=== PATIENT | female | born 1980 | race Caucasian/White ===

== ENCOUNTER 2017-04-04 19:12 | Emergency (ER) | payer SELFPAY ==
[2017-04-04 19:35] VITALS: BP 114/81
[2017-04-04 20:57] LABS: Basophils % (Auto) 0.9 % (0.0-1.8); Eosinophils % (Auto) 1.8 % (0.0-4.3); Hemoglobin 13.7 gm/dl (10.1-14.3); Mean Corpuscular HGB Conc 33 % (30-34); Mean Corpuscular Hemoglobin 30 pg (28-32); Mean Corpuscular Volume 92 fl (79-97); Platelet Count 187 K/mm3 (140-440); Red Blood Count 4.55 M/mm3 (3.65-5.03); Red Cell Distribution Width 13.5 % (13.2-15.2); White Blood Count 5.7 K/mm3 (4.5-11.0)
[2017-04-04 21:13] LABS: Alanine Aminotransferase 13 units/L (7-56); Albumin 4.6 g/dL (3.9-5); Albumin/Globulin Ratio 1.4 %; Alkaline Phosphatase 38 units/L (35-129); Anion Gap 19 mmol/L; BUN/Creatinine Ratio 17.14; Blood Urea Nitrogen 12 mg/dL (7-17); Calcium 9.7 mg/dL (8.4-10.2); Carbon Dioxide 23 mmol/L (22-30); Creatine Kinase 76 units/L (30-135); Glucose 90 mg/dL (65-100); Potassium 3.7 mmol/L (3.6-5.0); Sodium 136 mmol/L (137-145); Total Protein 7.9 g/dL (6.3-8.2)
[2017-04-04 21:22] LABS: Creatine Kinase MB < 1.0 ng/mL (0.0-4.0)
--- NOTE | 2017-04-05 07:19 | ED Elopement Review ---
ED Pt Elopement review - Results review Lab results: Laboratory Tests 04/04/17 04/04/17 20:43 20:43 WBC 5.7 RBC 4.55 Hgb 13.7 Hct 42.0 MCV 92 MCH 30 MCHC 33 RDW 13.5 Plt Count 187 Lymph % (Auto) 40.3 H [place] % (Auto) 6.1 Eos % (Auto) 1.8 Baso % (Auto) 0.9 Lymph # 2.3 [place] # 0.3 Eos # 0.1 Baso # 0.1 Seg Neutrophils % 50.9 Seg Neutrophils # 2.9 Sodium 136 L Potassium 3.7 Chloride 98.0 Carbon Dioxide 23 Anion Gap 19 BUN 12 Creatinine 0.7 Estimated GFR > 60 BUN/Creatinine Ratio 17.14 Glucose 90 Calcium 9.7 Total Bilirubin 0.20 AST 18 ALT 13 Alkaline Phosphatase 38 Total Creatine Kinase 76 CK-MB (CK-2) < 1.0 CK-MB (CK-2) Rel Index 1.3 Troponin T < 0.010 Total Protein 7.9 Albumin 4.6 Albumin/Globulin Ratio 1.4 - Call Back decision Pt Call Back Decision: No action required
== END 2017-04-04 22:35 | disposition left against medical advice (07) ==
LOC: ED 19:12
DX: R07.9 Chest pain, unspecified (principal); Z53.21 Procedure and treatment not carried out due to patient leaving prior to being seen by health care provider
CPT/HCPCS: 36415; 80053; 81025; 82550; 82553; 84484; 85025; 93005; 93010

== ENCOUNTER 2017-07-16 20:24 | Emergency (ER) | payer MEDICAID, OTHER ==
[2017-07-16] MEDS ORDERED: ZOFRAN ODT PO ONE (22:05)
[2017-07-16 22:58] LABS: Basophils % (Auto) 0.6 % (0.0-1.8); Eosinophils % (Auto) 0.4 % (0.0-4.3); Hematocrit 42.4 % (30.3-42.9); Hemoglobin 13.8 gm/dl (10.1-14.3); Mean Corpuscular HGB Conc 33 % (30-34); Mean Corpuscular Hemoglobin 30 pg (28-32); Mean Corpuscular Volume 93 fl (79-97); Platelet Count 215 K/mm3 (140-440); Red Blood Count 4.58 M/mm3 (3.65-5.03); Red Cell Distribution Width 13.5 % (13.2-15.2); White Blood Count 4.7 K/mm3 (4.5-11.0)
[2017-07-16 23:07] LABS: Blood Urea Nitrogen 9 mg/dL (7-17); Calcium 10.4 mg/dL (8.4-10.2); Carbon Dioxide 24 mmol/L (22-30); Chloride 98.1 mmol/L (98-107); Glucose 99 mg/dL (65-100); Sodium 141 mmol/L (137-145)
[2017-07-16 23:38] LABS: Anion Gap 23 mmol/L; Potassium 4.5 mmol/L (3.6-5.0)
[2017-07-17] MEDS ORDERED: NACL 0.9% 1000 ML 1,000 ML IV ONE (01:00)
[2017-07-17] MEDS ORDERED: ZOFRAN IV ONE (01:01)
[2017-07-17] MEDS ORDERED: TORADOL IV ONE (01:02)
[2017-07-17] MEDS ORDERED: REGLAN PO ONE (01:23)
[2017-07-17] MEDS ORDERED: FIORICET PO ONE (01:23)
[2017-07-17 02:29] LABS: Bacteria,Urine 1+ /HPF (Negative); Bilirubin,Urine NEG (Negative); Blood,Urine NEG (Negative); Ketones,Urine TR mg/dL (Negative); Leukocyte Esterase,Urine NEG (Negative); Mucus,Urine FEW /HPF; Nitrite,Urine NEG (Negative); Protein,Urine <15 mg/dL mg/dL (Negative); Urobilinogen,Urine < 2.0 mg/dL (<2.0)
--- NOTE | 2017-07-17 02:36 | Cat Scan Report ---
FINAL REPORT PROCEDURE: CT HEAD/BRAIN WO CON TECHNIQUE: Computerized tomography of the head was performed without contrast material. HISTORY: severe migraine COMPARISON: No prior studies are available for comparison. FINDINGS: Skull and scalp: Normal. Paranasal sinuses: Normal. Ventricles and subarachnoid spaces: Normal. Cerebrum: No evidence of hemorrhage, acute infarction or mass . Cerebellum and brainstem: No evidence of hemorrhage, acute infarction or mass. Vasculature: Normal. Comments: None. IMPRESSION: Normal Examination
--- NOTE | 2017-07-17 03:23 | Emergency Department Report ---
ED General Adult HPI - General Chief complaint: Headache Stated complaint: HEADACHE/VOMITING/FEVER Time Seen by Provider: 07/17/17 01:00 Source: patient Mode of arrival: Ambulatory Limitations: No Limitations - History of Present Illness Initial comments: Patient is a 37-year-old female past medical history of migraines who presents with a headache has been going on for last 6 days patient states the pain is an 8 out of 10 located in the right side of her mandaen nothing makes the pain better or worse is an achy type of pain and radiates throughout her head. She states that she feels sometimes nausea but no vomiting. Patient states that she 's tried [id number] medications but nothing assault. Onset of patient's symptoms was gradual. Patient has also reported some subjective fever. Severity scale (0 -10): 7 - Related Data Previous Rx's Medication Instructions Recorded Last Taken Type Butalb/Acetamin/Caff 50-325-40 1 tab PO Q6HR PRN #20 tab 07/17/17 Unknown Rx [Fioricet] Ondansetron [Zofran Odt] 4 mg PO Q8HR PRN #13 tab.rapdis 07/17/17 Unknown Rx Allergies Allergy/AdvReac Type Severity Reaction Status Date / Time ciprofloxacin [From Cipro] Allergy Rash Verified 07/17/17 01:01 ciprofloxacin HCl Allergy Rash Verified 07/17/17 01:01 [From Cipro] levofloxacin [From Levaquin] Allergy Rash Verified 07/17/17 01:01 ED Review of Systems ROS: Stated complaint: HEADACHE/VOMITING/FEVER Other details as noted in HPI Constitutional: fever. denies: chills Eyes: denies: eye pain, eye discharge, vision change ENT: denies: ear pain, throat pain Respiratory: denies: cough, shortness of breath, wheezing Cardiovascular: denies: chest pain, palpitations Endocrine: no symptoms reported Gastrointestinal: denies: abdominal pain, nausea, diarrhea Genitourinary: denies: urgency, dysuria, discharge Musculoskeletal: denies: back pain, joint swelling, arthralgia Skin: denies: rash, lesions Neurological: headache. denies: weakness, paresthesias Psychiatric: denies: anxiety, depression Hematological/Lymphatic: denies: easy bleeding, easy bruising ED Past Medical Hx - Past Medical History Hx Headaches / Migraines: Yes Additional medical history: migraines - Surgical History Past Surgical History?: No - Social History Smoking Status: Never Smoker Substance Use Type: None - Medications Home Medications: Home Medications Medication Instructions Recorded Confirmed Last Taken Type Butalb/Acetamin/Caff 50-325-40 1 tab PO Q6HR PRN #20 tab 07/17/17 Unknown Rx [Fioricet] Ondansetron [Zofran Odt] 4 mg PO Q8HR PRN #13 tab.rapdis 07/17/17 Unknown Rx ED Physical Exam - General Limitations: No Limitations General appearance: alert, in no apparent distress - Head Head exam: Present: atraumatic, normocephalic - Eye Eye exam: Present: normal appearance - ENT ENT exam: Present: mucous membranes moist - Neck Neck exam: Present: normal inspection - Respiratory Respiratory exam: Present: normal lung sounds bilaterally. Absent: respiratory distress - Cardiovascular Cardiovascular Exam: Present: regular rate, normal rhythm. Absent: systolic murmur, diastolic murmur, rubs, gallop - GI/Abdominal GI/Abdominal exam: Present: soft, normal bowel sounds - Extremities Exam Extremities exam: Present: normal inspection - Back Exam Back exam: Present: normal inspection - Neurological Exam Neurological exam: Present: alert, oriented X3 - Psychiatric Psychiatric exam: Present: normal affect, normal mood - Skin Skin exam: Present: warm, dry, intact, normal color. Absent: rash ED Course Vital Signs 07/16/17 07/17/17 07/17/17 21:56 01:25 01:41 Temperature 98.2 F 98.0 F Pulse Rate 82 65 Respiratory 18 18 18 Rate Blood Pressure 124/80 Blood Pressure 124/80 121/82 [Left] O2 Sat by Pulse 100 100 Oximetry 07/17/17 03:35 Temperature Pulse Rate 71 Respiratory 16 Rate Blood Pressure Blood Pressure 119/76 [Left] O2 Sat by Pulse 100 Oximetry ED Medical Decision Making - Lab Data Result diagrams: 07/16/17 22:07 07/16/17 22:07 Lab Results 07/16/17 07/16/17 07/16/17 Range/Units 22:07 22:07 22:33 WBC 4.7 (4.5-11.0) K/mm3 RBC 4.58 (3.65-5.03) M/mm3 Hgb 13.8 (10.1-14.3) gm/dl Hct 42.4 (30.3-42.9) % MCV 93 (79-97) fl MCH 30 (28-32) pg MCHC 33 (30-34) % RDW 13.5 (13.2-15.2) % Plt Count 215 (140-440) K/mm3 Lymph % (Auto) 24.7 (13.4-35.0) % [place] % (Auto) 5.8 (0.0-7.3) % Eos % (Auto) 0.4 (0.0-4.3) % Baso % (Auto) 0.6 (0.0-1.8) % Lymph # 1.2 (1.2-5.4) K/mm3 [place] # 0.3 (0.0-0.8) K/mm3 Eos # 0.0 (0.0-0.4) K/mm3 Baso # 0.0 (0.0-0.1) K/mm3 Seg Neutrophils % 68.5 (40.0-70.0) % Seg Neutrophils # 3.2 (1.8-7.7) K/mm3 Sodium 141 (137-145) mmol/L Potassium 4.5 (3.6-5.0) mmol/L Chloride 98.1 (98-107) mmol/L Carbon Dioxide 24 (22-30) mmol/L Anion Gap 23 mmol/L BUN 9 (7-17) mg/dL Creatinine 0.6 L (0.7-1.2) mg/dL Estimated GFR > 60 ml/min BUN/Creatinine Ratio 15.00 % Glucose 99 (65-100) mg/dL Calcium 10.4 H (8.4-10.2) mg/dL HCG, Qual Negative (Negative) Urine Color (Yellow) Urine Turbidity (Clear) Urine pH (5.0-7.0) Ur Specific [place] (1.003-1.030) Urine Protein (Negative) mg/dL Urine Glucose (UA) (Negative) mg/dL Urine Ketones (Negative) mg/dL Urine Blood (Negative) Urine Nitrite (Negative) Urine Bilirubin (Negative) Urine Urobilinogen (<2.0) mg/dL Ur Leukocyte Esterase (Negative) Urine WBC (Auto) (0.0-6.0) /HPF Urine RBC (Auto) (0.0-6.0) /HPF U Epithel Cells (Auto) (0-13.0) /HPF Urine Bacteria (Auto) (Negative) /HPF Urine Mucus /HPF 07/17/17 Range/Units 01:05 WBC (4.5-11.0) K/mm3 RBC (3.65-5.03) M/mm3 Hgb (10.1-14.3) gm/dl Hct (30.3-42.9) % MCV (79-97) fl MCH (28-32) pg MCHC (30-34) % RDW (13.2-15.2) % Plt Count (140-440) K/mm3 Lymph % (Auto) (13.4-35.0) % [place] % (Auto) (0.0-7.3) % Eos % (Auto) (0.0-4.3) % Baso % (Auto) (0.0-1.8) % Lymph # (1.2-5.4) K/mm3 [place] # (0.0-0.8) K/mm3 Eos # (0.0-0.4) K/mm3 Baso # (0.0-0.1) K/mm3 Seg Neutrophils % (40.0-70.0) % Seg Neutrophils # (1.8-7.7) K/mm3 Sodium (137-145) mmol/L Potassium (3.6-5.0) mmol/L Chloride (98-107) mmol/L Carbon Dioxide (22-30) mmol/L Anion Gap mmol/L BUN (7-17) mg/dL Creatinine (0.7-1.2) mg/dL Estimated GFR ml/min BUN/Creatinine Ratio % Glucose (65-100) mg/dL Calcium (8.4-10.2) mg/dL HCG, Qual (Negative) Urine Color Yellow (Yellow) Urine Turbidity Cloudy (Clear) Urine pH 7.0 (5.0-7.0) Ur Specific [place] 1.012 (1.003-1.030) Urine Protein <15 mg/dl (Negative) mg/dL Urine Glucose (UA) Neg (Negative) mg/dL Urine Ketones Tr (Negative) mg/dL Urine Blood Neg (Negative) Urine Nitrite Neg (Negative) Urine Bilirubin Neg (Negative) Urine Urobilinogen < 2.0 (<2.0) mg/dL Ur Leukocyte Esterase Neg (Negative) Urine WBC (Auto) 1.0 (0.0-6.0) /HPF Urine RBC (Auto) 4.0 (0.0-6.0) /HPF U Epithel Cells (Auto) 3.0 (0-13.0) /HPF Urine Bacteria (Auto) 1+ (Negative) /HPF Urine Mucus Few /HPF - Radiology Data Radiology results: report reviewed, image reviewed CT head shows no acute intracranial abnormality - Medical Decision Making Medical diagnosis: Migraine headache Differential medical diagnosis: Tension headache, viral headache, intracranial bleed, UTI CBC, CMP, UA, CT head and oral analgesic medication Patient's clinical history and unremarkable laboratory findings an unremarkable stable CT 0.2 migraine headache L send patient home with follow-up. Critical care attestation.: If time is entered above; I have spent that time in minutes in the direct care of this critically ill patient, excluding procedure time. ED Disposition Clinical Impression: Migraine aura, persistent, intractable, Nausea Disposition: TO HOME OR SELFCARE Is pt being admited?: No Does the pt Need Aspirin: No Condition: Stable Instructions: Migraine Headache (ED) Prescriptions: Butalb/Acetamin/Caff 50-325-40 [Fioricet] 1 tab PO Q6HR PRN #20 tab PRN Reason: Headache Ondansetron [Zofran Odt] 4 mg PO Q8HR PRN #13 tab.rapdis PRN Reason: Nausea Referrals: PRIMARY CARE, [Primary Care Provider] - 3-5 Days
[2017-07-17 04:01] VITALS: BP 119/76
== END 2017-07-17 03:35 | disposition home or self-care (01) ==
LOC: ED 20:24
DX: G43.119 Migraine with aura, intractable, without status migrainosus (principal); R11.0 Nausea; Z88.1 Allergy status to other antibiotic agents
CPT/HCPCS: 36415; 70450; 80048; 81001; 84703; 85025; 99284; Q0162

== ENCOUNTER 2017-11-05 10:22 | Emergency (ER) | payer OTHER ==
[2017-11-05 11:16] LABS: Bacteria,Urine 1+ /HPF (Negative); Bilirubin,Urine NEG (Negative); Blood,Urine NEG (Negative); Ketones,Urine NEG (Negative); Leukocyte Esterase,Urine NEG (Negative); Mucus,Urine 2+ /HPF; Nitrite,Urine NEG (Negative); Protein,Urine <15 mg/dL mg/dL (Negative); Urobilinogen,Urine < 2.0 mg/dL (<2.0)
[2017-11-05 11:18] LABS: Mean Corpuscular HGB Conc 32 % (30-34); Mean Corpuscular Hemoglobin 30 pg (28-32); Mean Corpuscular Volume 93 fl (79-97); Platelet Count 192 K/mm3 (140-440); Red Blood Count 4.32 M/mm3 (3.65-5.03); Red Cell Distribution Width 13.2 % (13.2-15.2); White Blood Count 3.1 K/mm3 (4.5-11.0)
[2017-11-05 11:31] LABS: Alanine Aminotransferase 13 units/L (7-56); Albumin 4.3 g/dL (3.9-5); Albumin/Globulin Ratio 1.5 %; Alkaline Phosphatase 35 units/L (35-129); Anion Gap 16 mmol/L; BUN/Creatinine Ratio 11; Blood Urea Nitrogen 8 mg/dL (7-17); Calcium 9.3 mg/dL (8.4-10.2); Carbon Dioxide 25 mmol/L (22-30); Chloride 104.9 mmol/L (98-107); Glucose 88 mg/dL (65-100); Lipase 24 units/L (13-60); Potassium 4.2 mmol/L (3.6-5.0); Sodium 142 mmol/L (137-145); Total Protein 7.1 g/dL (6.3-8.2)
[2017-11-05 12:08] LABS: Basophils % (Manual) 0 % (0.0-1.8); Blastocytes % (Manual) 0 %
[2017-11-05 12:09] LABS: Diff Status Complete; Poikilocytosis Few
--- NOTE | 2017-11-05 17:05 | Emergency Department Report ---
ED Abdominal Pain HPI - General Chief Complaint: Abdominal Pain Stated Complaint: ABD PAIN Time Seen by Provider: 11/05/17 16:51 Source: patient Mode of arrival: Ambulatory Limitations: No Limitations - History of Present Illness Initial Comments: 27-year-old female here for evaluation of lower abdominal pain no nausea vomiting or diarrhea question of frequency urgency no back pain no fever Denies history of surgery states she is not sexually active no vaginal discharge here for evaluation of suprapubic pain for 1-2 days MD Complaint: abdominal pain -: hour(s) Location: suprapubic Radiation: none Migration to: no migration Severity: mild Severity scale (0 -10): 0 Quality: aching Consistency: intermittent Associated Symptoms: denies: nausea, vomiting, diarrhea, chills, constipation, hematemesis, hematochezia, melena, hematuria, anorexia - Related Data LMP (females 10-50): this week Previous Rx's Medication Instructions Recorded Last Taken Type Butalb/Acetamin/Caff 50-325-40 1 tab PO Q6HR PRN #20 tab 07/17/17 Unknown Rx [Fioricet] Ondansetron [Zofran Odt] 4 mg PO Q8HR PRN #13 tab.rapdis 07/17/17 Unknown Rx Nitrofurantoin Monohyd/M-Cryst 100 mg PO BID #14 capsule 11/05/17 Unknown Rx [Macrobid 100 mg Capsule] Allergies Allergy/AdvReac Type Severity Reaction Status Date / Time ciprofloxacin [From Cipro] Allergy Rash Verified 07/17/17 01:01 ciprofloxacin HCl Allergy Rash Verified 07/17/17 01:01 [From Cipro] levofloxacin [From Levaquin] Allergy Rash Verified 07/17/17 01:01 ED Review of Systems ROS: Stated complaint: ABD PAIN Other details as noted in HPI Comment: All other systems reviewed and negative Constitutional: no symptoms reported. denies: diaphoresis, fever, malaise, weakness Respiratory: denies: no symptoms reported, shortness of breath, SOB with exertion, SOB at rest, stridor, wheezing Cardiovascular: as per HPI. denies: chest pain, palpitations, dyspnea on exertion, orthopnea Gastrointestinal: abdominal pain. denies: nausea, vomiting, constipation, hematemesis, melena, hematochezia Neurological: denies: headache, weakness, numbness, paresthesias Psychiatric: denies: depression Hematological/Lymphatic: denies: easy bruising ED Past Medical Hx - Past Medical History Hx Headaches / Migraines: Yes Additional medical history: migraines - Social History Smoking Status: Former Smoker Substance Use Type: None - Medications Home Medications: Home Medications Medication Instructions Recorded Confirmed Last Taken Type Butalb/Acetamin/Caff 50-325-40 1 tab PO Q6HR PRN #20 tab 07/17/17 Unknown Rx [Fioricet] Ondansetron [Zofran Odt] 4 mg PO Q8HR PRN #13 tab.rapdis 07/17/17 Unknown Rx Nitrofurantoin Monohyd/M-Cryst 100 mg PO BID #14 capsule 11/05/17 Unknown Rx [Macrobid 100 mg Capsule] ED Physical Exam - General Limitations: No Limitations General appearance: alert - Head Head exam: Present: atraumatic, normocephalic, normal inspection - Eye Eye exam: Present: PERRL, EOMI - ENT ENT exam: Present: normal exam, normal orophraynx, mucous membranes dry, mucous membranes moist - Neck Neck exam: Absent: tenderness, meningismus - Respiratory Respiratory exam: Present: normal lung sounds bilaterally. Absent: respiratory distress, wheezes, rales, rhonchi, stridor - Cardiovascular Cardiovascular Exam: Present: regular rate, normal rhythm - GI/Abdominal GI/Abdominal exam: Present: soft. Absent: distended, guarding, rebound, mass, bruit, pulsatile mass - Extremities Exam Extremities exam: Present: normal inspection - Neurological Exam Neurological exam: Present: alert, CN II-XII intact, normal gait. Absent: motor sensory deficit - Psychiatric Psychiatric exam: Present: normal affect, normal mood. Absent: depressed ED Course Vital Signs 11/05/17 11/05/17 11/05/17 10:25 17:07 17:08 Temperature 98.8 F 98 F Pulse Rate 98 H 62 Respiratory 20 16 16 Rate Blood Pressure 111/79 Blood Pressure 109/68 [Left] O2 Sat by Pulse 98 Oximetry ED Medical Decision Making - Lab Data Result diagrams: 11/05/17 10:54 11/05/17 10:54 - Medical Decision Making Patient reevaluated. Symptoms are consistent with UTI. Patient not no acute abdomen at this time. Patient is tolerating by mouth no nausea vomiting laboratory studies unremarkable still for outpatient follow-up. She denied any vaginal discharge no evidence of PID stable His follow-up. Critical care attestation.: If time is entered above; I have spent that time in minutes in the direct care of this critically ill patient, excluding procedure time. ED Disposition Clinical Impression: Urinary tract infection Disposition: TO HOME OR SELFCARE Is pt being admited?: No Condition: Stable Instructions: Abdominal Pain (ED), Urinary Tract Infection in Women (ED) Additional Instructions: Return immediately if new alarming symptoms see her doctor in 2 days Prescriptions: Nitrofurantoin Monohyd/M-Cryst [Macrobid 100 mg Capsule] 100 mg PO BID #14 capsule Referrals: PRIMARY CARE, [Primary Care Provider] - 3-5 Days Time of Disposition: 18:06
[2017-11-05 17:08] VITALS: BP 109/68
== END 2017-11-05 18:28 | disposition home or self-care (01) ==
LOC: ED 10:22
DX: N39.0 Urinary tract infection, site not specified (principal); G43.909 Migraine, unspecified, not intractable, without status migrainosus; Z87.891 Personal history of nicotine dependence; Z88.1 Allergy status to other antibiotic agents
CPT/HCPCS: 36415; 80053; 81001; 81025; 83690; 85007; 85025; 99283

== ENCOUNTER 2017-11-08 10:26 | Emergency (ER) | payer SELFPAY ==
[2017-11-08 11:34] VITALS: BP 112/70
== END 2017-11-08 11:45 | disposition left against medical advice (07) ==
LOC: ED 10:26
DX: R10.9 Unspecified abdominal pain (principal); Z53.21 Procedure and treatment not carried out due to patient leaving prior to being seen by health care provider

== ENCOUNTER 2018-05-07 20:47 | Inpatient (IN) | payer OTHER ==
[2018-05-07] MEDS ORDERED: ASPIRIN PO ONE (21:02)
[2018-05-07 21:41] LABS: BUN/Creatinine Ratio 13; Blood Urea Nitrogen 10 mg/dL (7-17); Calcium 9.8 mg/dL (8.4-10.2); Hemolysis Index 5
[2018-05-07 21:46] LABS: Basophils # (Auto) 0.1 K/mm3 (0.0-0.1); Basophils % (Auto) 1.2 % (0.0-1.8); Eosinophils # (Auto) 0.1 K/mm3 (0.0-0.4); Eosinophils % (Auto) 2.3 % (0.0-4.3); Hematocrit 39.3 % (30.3-42.9); Lymphocytes # (Auto) 2.8 K/mm3 (1.2-5.4); Lymphocytes % (Auto) 48.7 % (13.4-35.0); Mean Corpuscular HGB Conc 33 % (30-34); Mean Corpuscular Hemoglobin 30 pg (28-32); Mean Corpuscular Volume 92 fl (79-97); Monocytes # (Auto) 0.4 K/mm3 (0.0-0.8); Monocytes % (Auto) 7.2 % (0.0-7.3); Platelet Count 214 K/mm3 (140-440); Red Blood Count 4.28 M/mm3 (3.65-5.03); Red Cell Distribution Width 13.3 % (13.2-15.2)
--- NOTE | 2018-05-08 08:45 | Emergency Department Report ---
HPI - General Chief Complaint: Chest Pain Time Seen by Provider: 05/08/18 08:30 - HPI HPI: Room 26 The patient is a 38-year-old female presenting with a chief complaint of chest pain. The patient states one month ago she had an episode of chest tightness which lasted one day. The patient states she did not seek medical attention at that time. The patient states 2 days ago the chest tightness returned and was intermittent for the past 2 days. The patient states the tightness is associated with shortness of breath and nausea but denies vomiting or diaphoresis. Patient denies any history of fever. Patient currently denies chest pain. The patient states she's never had a stress test or cardiac catheterization Location: Chest, see above Duration: [See above] Quality: Tightness Severity: Currently 0/10 Modifying factors: [see above] Context: [see above] Mode of transportation: Unknown ED Past Medical Hx - Past Medical History Previous Medical History?: Yes Hx Headaches / Migraines: Yes Additional medical history: migraines. "irregular heart beat" - Surgical History Past Surgical History?: No - Family History Family history: no significant - Social History Smoking Status: Never Smoker Substance Use Type: None (denies illicit drug use) - Medications Home Medications: Home Medications Medication Instructions Recorded Confirmed Last Taken Type Butalb/Acetamin/Caff 50-325-40 1 tab PO Q6HR PRN #20 tab 07/17/17 Unknown Rx [Fioricet] Ondansetron [Zofran Odt] 4 mg PO Q8HR PRN #13 tab.rapdis 07/17/17 Unknown Rx Nitrofurantoin Monohyd/M-Cryst 100 mg PO BID #14 capsule 11/05/17 Unknown Rx [Macrobid 100 mg Capsule] ED Review of Systems ROS: Stated complaint: CHEST PAIN,SOB Other details as noted in HPI Constitutional: denies: fever Eyes: denies: eye pain ENT: denies: throat pain Respiratory: shortness of breath Cardiovascular: chest pain Gastrointestinal: nausea. denies: vomiting Genitourinary: denies: dysuria Musculoskeletal: denies: back pain Neurological: denies: headache Physical Exam - Physical Exam Vital Signs: Vital Signs 05/07/18 05/08/18 05/08/18 20:58 08:08 08:09 Temperature 98.8 F 98.0 F Pulse Rate 78 61 Respiratory 18 18 16 Rate Blood Pressure 103/73 Blood Pressure 108/65 [Left] O2 Sat by Pulse 99 100 100 Oximetry Physical Exam: GENERAL: The patient is well-developed well-nourished female lying on stretcher not appearing to be in acute distress. [] HEENT: Normocephalic. Atraumatic. Extraocular motions are intact. Patient has moist mucous membranes. NECK: Supple. Trachea midline CHEST/LUNGS: Clear to auscultation. There is no respiratory distress noted. HEART/CARDIOVASCULAR: Regular. There is no tachycardia. There is no gallop rub or murmur. ABDOMEN: Abdomen is soft, nontender. Patient has normal bowel sounds. There is no abdominal distention. SKIN: There is no rash. There is no edema. There is no diaphoresis. NEURO: The patient is awake, alert, and oriented. The patient is cooperative. The patient has normal speech MUSCULOSKELETAL: There is no evidence of acute injury. ED Course Vital Signs 05/07/18 05/08/18 05/08/18 20:58 08:08 08:09 Temperature 98.8 F 98.0 F Pulse Rate 78 61 Respiratory 18 18 16 Rate Blood Pressure 103/73 Blood Pressure 108/65 [Left] O2 Sat by Pulse 99 100 100 Oximetry ED Medical Decision Making - Lab Data Result diagrams: 05/07/18 21:06 05/07/18 21:06 Laboratory Tests 05/07/18 05/07/18 05/08/18 21:06 21:06 00:24 WBC 5.7 RBC 4.28 Hgb 13.0 Hct 39.3 MCV 92 MCH 30 MCHC 33 RDW 13.3 Plt Count 214 Lymph % (Auto) 48.7 H [place] % (Auto) 7.2 Eos % (Auto) 2.3 Baso % (Auto) 1.2 Lymph # 2.8 [place] # 0.4 Eos # 0.1 Baso # 0.1 Seg Neutrophils % 40.6 Seg Neutrophils # 2.3 Sodium 139 Potassium 4.0 Chloride 99.9 Carbon Dioxide 27 Anion Gap 16 BUN 10 Creatinine 0.8 Estimated GFR > 60 BUN/Creatinine Ratio 13 Glucose 89 Calcium 9.8 Troponin T < 0.010 < 0.010 05/08/18 02:35 WBC RBC Hgb Hct MCV MCH MCHC RDW Plt Count Lymph % (Auto) [place] % (Auto) Eos % (Auto) Baso % (Auto) Lymph # [place] # Eos # Baso # Seg Neutrophils % Seg Neutrophils # Sodium Potassium Chloride Carbon Dioxide Anion Gap BUN Creatinine Estimated GFR BUN/Creatinine Ratio Glucose Calcium Troponin T < 0.010 - EKG Data -: EKG Interpreted by Me EKG shows normal: sinus rhythm Rate: normal - EKG Data When compared to previous EKG there are: no significant change Interpretation: unchanged when compared t (04/04/2017) - Radiology Data Radiology results: image reviewed (chest x-ray) interpreted by me: Chest x-ray-no focal infiltrates, no pneumothorax - Differential Diagnosis ACS, GERD, pericarditis Critical care attestation.: If time is entered above; I have spent that time in minutes in the direct care of this critically ill patient, excluding procedure time. ED Disposition Clinical Impression: Chest pain Disposition: DC-09 OP ADMIT IP TO THIS HOSP Is pt being admited?: Yes Does the pt Need Aspirin: Yes Condition: Fair Instructions: Chest Pain (ED) Referrals: PRIMARY CARE,MD [Primary Care Provider] - 3-5 Days Time of Disposition: 09:21 (hospitalist paged (Dr Alvarez))
--- NOTE | 2018-05-08 09:28 | XRay Report ---
CHEST ONE VIEW INDICATION: Chest pain. COMPARISON: None similar. FINDINGS: Portable, single, frontal chest radiograph demonstrates normal cardiomediastinal silhouette. Clear lungs. Unremarkable bones. Extrinsic EKG leads. CONCLUSION: No acute disease in the chest. Thank you for the opportunity to participate in this patient's care.
--- NOTE | 2018-05-08 14:26 | History and Physical Report ---
History of Present Illness Date of admission: 05/08/18 09:22 History of present illness: 38F with chest pain, x 2 days. Describes as tightness, intermittent, assoc with sob, and nausea, no v/d, no fever, no orthopnea, no pnd The patient states she's never had a stress test or cardiac catheterization - Past Medical History Previous Medical History?: Yes Hx Headaches / Migraines: Yes Additional medical history: migraines. "irregular heart beat" - Surgical History Past Surgical History?: No - Family History Family history: no significant - Social History Smoking Status: smoked 1ppd for 2 years in her youth Substance Use Type: None (denies illicit drug use) Medications and Allergies Allergies Allergy/AdvReac Type Severity Reaction Status Date / Time ciprofloxacin [From Cipro] Allergy Rash Verified 11/08/17 11:29 ciprofloxacin HCl Allergy Rash Verified 11/08/17 11:29 [From Cipro] levofloxacin [From Levaquin] Allergy Rash Verified 11/08/17 11:29 Home Medications Medication Instructions Recorded Confirmed Last Taken Type Biotin 10,000 mcg PO DAILY 05/08/18 05/08/18 Unknown History Multivitamin Tab [Multiple Vitamin 1 each PO QDAY 05/08/18 05/08/18 Unknown History TAB (Theragran)] [place]-3/Dha/Epa/Fish Oil [Fish Oil 1 each PO DAILY 05/08/18 05/08/18 Unknown History 1,000 mg Softgel] Pantoprazole [Protonix TAB] 20 mg PO QDAY #30 tablet. 05/09/18 Unknown Rx Review of Systems All systems: negative (chest pain,) Constitutional: no weight gain Ears, nose, mouth and throat: no ear pain Breasts: no change in shape Cardiovascular: chest pain, no orthopnea Respiratory: no cough Gastrointestinal: no abdominal pain Genitourinary Female: no dyspareunia Rectal: no pain Musculoskeletal: no neck stiffness Integumentary: no rash Neurological: no head injury Psychiatric: no anxiety Endocrine: no cold intolerance Hematologic/Lymphatic: no easy bruising Allergic/Immunologic: no urticaria Exam - Constitutional Vitals: Temp Pulse Resp BP Pulse Ox 98.6 F 66 18 118/65 100 05/08/18 12:44 05/08/18 12:44 05/08/18 12:44 05/08/18 12:44 05/08/18 12:44 General appearance: Present: no acute distress, well-nourished - EENT Eyes: Present: PERRL ENT: hearing intact, clear oral mucosa - Neck Neck: Present: supple, normal ROM - Respiratory Respiratory effort: normal Respiratory: bilateral: CTA - Cardiovascular Heart Sounds: Present: S1 & S2. Absent: rub, click - Extremities Extremities: pulses symmetrical, No edema Peripheral Pulses: within normal limits - Abdominal General gastrointestinal: Present: soft, non-tender, non-distended, normal bowel sounds Female genitourinary: Present: normal - Integumentary Integumentary: Present: clear, warm, dry - Musculoskeletal Musculoskeletal: gait normal, strength equal bilaterally - Psychiatric Psychiatric: appropriate mood/affect, intact judgment & insight - Neurologic Neurologic: CNII-XII intact, moves all extremities Results - Labs CBC & Chem 7: 05/07/18 21:06 05/08/18 15:40 Labs: Laboratory Last Values WBC 5.7 K/mm3 (4.5-11.0) 05/07/18 21:06 RBC 4.28 M/mm3 (3.65-5.03) 05/07/18 21:06 Hgb 13.0 gm/dl (10.1-14.3) 05/07/18 21:06 Hct 39.3 % (30.3-42.9) 05/07/18 21:06 MCV 92 fl (79-97) 05/07/18 21:06 MCH 30 pg (28-32) 05/07/18 21:06 MCHC 33 % (30-34) 05/07/18 21:06 RDW 13.3 % (13.2-15.2) 05/07/18 21:06 Plt Count 214 K/mm3 (140-440) 05/07/18 21:06 Lymph % (Auto) 48.7 % (13.4-35.0) H 05/07/18 21:06 [place] % (Auto) 7.2 % (0.0-7.3) 05/07/18 21:06 Eos % (Auto) 2.3 % (0.0-4.3) 05/07/18 21:06 Baso % (Auto) 1.2 % (0.0-1.8) 05/07/18 21:06 Lymph # 2.8 K/mm3 (1.2-5.4) 05/07/18 21:06 [place] # 0.4 K/mm3 (0.0-0.8) 05/07/18 21:06 Eos # 0.1 K/mm3 (0.0-0.4) 05/07/18 21:06 Baso # 0.1 K/mm3 (0.0-0.1) 05/07/18 21:06 Seg Neutrophils % 40.6 % (40.0-70.0) 05/07/18 21:06 Seg Neutrophils # 2.3 K/mm3 (1.8-7.7) 05/07/18 21:06 Sodium 139 mmol/L (137-145) 05/07/18 21:06 Potassium 4.0 mmol/L (3.6-5.0) 05/07/18 21:06 Chloride 99.9 mmol/L (98-107) 05/07/18 21:06 Carbon Dioxide 27 mmol/L (22-30) 05/07/18 21:06 Anion Gap 16 mmol/L 05/07/18 21:06 BUN 10 mg/dL (7-17) 05/07/18 21:06 Creatinine 0.8 mg/dL (0.7-1.2) 05/07/18 21:06 Estimated GFR > 60 ml/min 05/07/18 21:06 BUN/Creatinine Ratio 13 % 05/07/18 21:06 Glucose 89 mg/dL (65-100) 05/07/18 21:06 Calcium 9.8 mg/dL (8.4-10.2) 05/07/18 21:06 Troponin T < 0.010 ng/mL (0.00-0.029) 05/08/18 02:35 - Imaging and Cardiology Chest x-ray: image reviewed (No acute disease in the chest. ) Assessment and Plan Assessment and plan: 38f with chest pain DDx includes gerd, and costochondritis Trop neg, cxr neg, ekg neg for stress test in am
[2018-05-08] MEDS ORDERED: TYLENOL PO PRN (14:29)
[2018-05-08] MEDS ORDERED: ZOFRAN IV PRN (14:29)
[2018-05-08] MEDS ORDERED: PERCOCET 5/325 PO PRN (14:29)
[2018-05-08] MEDS ORDERED: SODIUM CHLORIDE FLUSH SYRINGE 10 ML IV PRN (14:29)
[2018-05-08 16:24] LABS: BUN/Creatinine Ratio 13; Blood Urea Nitrogen 8 mg/dL (7-17); Calcium 9.4 mg/dL (8.4-10.2); Hemolysis Index 9
[2018-05-09] MEDS: SODIUM CHLORIDE FLUSH SYRINGE 10 ML IV SCH ×2 (07:16→10:47)
--- NOTE | 2018-05-09 08:40 | Discharge Summary ---
Providers - Providers Date of Admission: 05/08/18 09:22 Attending physician: RADHA FLANAGAN MD 05/08/18 Consult to Cardiac Rehabilitation [CONS] Routine Reason For Exam: Phase I Primary care physician: [employer] Hospitalization Condition: Fair Hospital course: 38-year-old man was admitted with chest pain. EKG and chest x-ray were negative. She went on to have a stress test that was negative for ischemia. Tetanus attributed to GERD, depression was started on a PPI. Diagnosis Chest pain due to GERD Disposition: DC- TO HOME OR SELFCARE Time spent for discharge: 33 minutes Core Measure Documentation - Palliative Care Palliative Care/ Comfort Measures: Not Applicable - Core Measures Any of the following diagnoses?: none Exam - Constitutional Vitals: Temp Pulse Resp BP Pulse Ox 99.2 F 65 17 104/64 99 05/09/18 07:43 05/09/18 07:43 05/09/18 07:43 05/09/18 07:43 05/09/18 07:43 General appearance: Present: no acute distress, well-nourished - EENT Eyes: Present: PERRL ENT: hearing intact, clear oral mucosa - Neck Neck: Present: supple, normal ROM - Respiratory Respiratory effort: normal Respiratory: bilateral: CTA - Cardiovascular Heart Sounds: Present: S1 & S2. Absent: rub, click - Extremities Extremities: pulses symmetrical, No edema Peripheral Pulses: within normal limits - Abdominal General gastrointestinal: Present: soft, non-tender, non-distended, normal bowel sounds Female genitourinary: Present: normal - Integumentary Integumentary: Present: clear, warm, dry - Musculoskeletal Musculoskeletal: gait normal, strength equal bilaterally - Psychiatric Psychiatric: appropriate mood/affect, intact judgment & insight - Neurologic Neurologic: CNII-XII intact, moves all extremities Plan Follow up with: CARLY PANDEY MD [Staff Physician] - 7 Days PRIMARY CARE, [Primary Care Provider] - 3-5 Days Prescriptions: Pantoprazole [Protonix TAB] 20 mg PO QDAY #30 tablet.
[2018-05-09] MEDS ORDERED: DHA PO SCH (10:00)
[2018-05-09] MEDS ORDERED: FISH OIL PO SCH ×2 (10:00)
[2018-05-09] MEDS ORDERED: THERAGRAN Tab PO SCH (10:00)
[2018-05-09] MEDS ORDERED: OMEGA PO SCH (10:00)
[2018-05-09] MEDS ORDERED: EPA PO SCH (10:00)
[2018-05-09] MEDS ORDERED: BIOTIN 10000 MCG PO SCH (10:00)
[2018-05-09 10:52] LABS: HCG Qualitative,Urine Negative (Negative)
[2018-05-09 16:40] VITALS: BP 104/69
--- NOTE | 2018-05-09 20:58 | Treadmill Report ---
Myocardial scan before stress test revealed homogeneous radioisotope activity throughout the myocardium. On post-exercise after obtaining 85% target heart rate on Alan protocol, the patient underwent a myocardial perfusion scan. This also revealed homogeneous radioisotope activity throughout the myocardium. There is no change from resting images. Gated scan revealed ejection fraction of 77%. There is no segmental motion abnormality. IMPRESSION: This test is negative for ischemia. JOB# [id number] HAILEY/NTS
== END 2018-05-09 18:44 | disposition home or self-care (01) | DRG 392 ==
LOC: ED 21:20 → 4A 05-08 09:22
PROVIDERS: ADMIT Internal Medicine; ATTEND Internal Medicine
DX: K21.9 Gastro-esophageal reflux disease without esophagitis (principal); G43.909 Migraine, unspecified, not intractable, without status migrainosus; F17.210 Nicotine dependence, cigarettes, uncomplicated; F32.9 Major depressive disorder, single episode, unspecified; Z88.1 Allergy status to other antibiotic agents
CPT/HCPCS: 36415; 71045; 78452; 80048; 81025; 84484; 85025; 93005; 93010; 93017; A9502